=== PATIENT | male | born 2000 | race Asian ===

== ENCOUNTER 2021-12-15 11:35 | Emergency (ER) | payer OTHER ==
[~2021-12-15] VITALS: Ht 172.7 cm; Wt 83.9 kg
[2021-12-15 11:42] VITALS: BP 120/72
--- NOTE | 2021-12-15 11:42 | NUR ---
BIBS C/O "RIGHT FACIAL PARALYSIS" SINCE YESTERDAY. VITALS ARE WITHIN NORMAL LIMITS. AWAITING MD FELTON.
[2021-12-15] MEDS ORDERED: PRED50TA PO (11:48)
[2021-12-15] MEDS ORDERED: ACYC200C31 PO (11:48)
--- NOTE | 2021-12-15 12:21 | NUR ---
Patient discharged to home in stable condition. Written and verbal after care instructions given. Patient verbalizes understanding of instruction.
== END 2021-12-15 12:22 | disposition home or self-care (01) ==
LOC: ER 11:40
DX: G51.0 Bell's palsy (principal); Z79.899 Other long term (current) drug therapy

== ENCOUNTER 2021-12-19 16:26 | Emergency (ER) | payer OTHER ==
[~2021-12-19] VITALS: Ht 167.6 cm; Wt 83.9 kg
[~2021-12-19 16:26] MED LIST: ACYC200C31 PO; PRED50TA PO
[2021-12-19 17:07] VITALS: BP 131/85
[2021-12-19] MEDS ORDERED: PRED20TA PO (18:19)
[2021-12-19] MEDS ORDERED: ACYC200C31 PO (18:19)
--- NOTE | 2021-12-19 19:03 | NUR ---
LORRY WEIGHER AT BEDSIDE FOR BLOOD DRAW
--- NOTE | 2021-12-19 19:07 | NUR ---
Patient discharged to home in stable condition. Written and verbal after care instructions given. Patient verbalizes understanding of instruction.
== END 2021-12-19 19:07 | disposition home or self-care (01) ==
LOC: ER 18:55
DX: G51.0 Bell's palsy (principal); Z79.899 Other long term (current) drug therapy
CPT/HCPCS: 36415